=== PATIENT | female | born 1995 | race Two or more races ===

== ENCOUNTER 2018-06-10 17:21 | Emergency (ER) | payer BC ==
[~2018-06-10] VITALS: Ht 149.9 cm; Wt 71.2 kg
[2018-06-10 17:29] VITALS: BP 120/49
== END 2018-06-10 19:00 | disposition home or self-care (01) ==
LOC: ER 17:23
DX: R07.89 Other chest pain (principal); R06.02 Shortness of breath; M54.6 Pain in thoracic spine
CPT/HCPCS: 71045; 93005; 99283; A4606; Z7610

== ENCOUNTER 2022-09-25 08:04 | Emergency (ER) | payer BC, OTHER ==
[~2022-09-25] VITALS: Ht 149.9 cm; Wt 70.3 kg
[2022-09-25 08:04] VITALS: BP 126/89
--- NOTE | 2022-09-25 08:04 | NUR ---
BIBS C/O SORE THROAT X2 WEEKS
[2022-09-25] MEDS ORDERED: AZIT250T13 PO (08:20)
--- NOTE | 2022-09-25 08:30 | NUR ---
Patient discharged to home in stable condition. Written and verbal after care instructions given. Patient verbalizes understanding of instruction.
== END 2022-09-25 08:30 | disposition home or self-care (01) ==
LOC: ER 08:05
DX: J02.9 Acute pharyngitis, unspecified (principal); J45.909 Unspecified asthma, uncomplicated